=== PATIENT | male | born 1980 | race Caucasian/White ===

== ENCOUNTER 2025-01-15 09:34 | Emergency (ER) | payer OTHER, SELFPAY ==
--- OUTSIDE RECORDS SUMMARY | 2025-01-15 09:37 | XMS_ITS | Clinical Summary ---
Author Organization [facility] [address] Address [address] [place] [phone] Care Team Providers Care Advertising Space Clerk Name Role Phone Cecille Dominguez Primary Care Provider Unavaila ble Allergies No known active allergies Medications No known medications Active Problems No known active problems Encounters Date Type Department Care Team Description 01/14/2025 4:00 PM CDT Office Visit [facility] Convenient Care at [address] [address] Gildardo Hatfield NP Blood in stool (Primary Dx); Diarrhea, unspecified type from Last 3 Months Social History Tobacco Use Types Packs/Day Years Used Date Smoking Tobacco: Never Assessed Sex and Gender Information Value Date Recorded Sex Assigned at Not on file 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 Gender Identity Not on file Sexual Orientation Not on file Obstetrics History Last Filed Vital Signs Vital Sign Reading Time Taken Comments Blood Pressure 128/82 01/14/2025 4:11 PM CDT Pulse 75 01/14/2025 4:11 PM CDT Temperature 36.6 C (97.8 F) 01/14/2025 4:11 PM CDT Respiratory Rate 20 01/14/2025 4:11 PM CDT Oxygen Saturation 99% 01/14/2025 4:11 PM CDT Inhaled Oxygen Concentration - - Weight 62.1 kg (137 lb) 01/14/2025 4:11 PM CDT Height 180.3 cm (5' 11) 02/28/2023 5:42 PM CDT Body Mass Index 19.11 02/28/2023 5:42 PM CDT Plan of Treatment Health Maintenance Due Date Last Done Comments Colon Cancer Screening-Colonoscopy 1978 Depression Screening 1978 Hepatitis C Screening 1978 DTaP/Tdap/Td Vaccine (1 - Tdap) 1989 Hepatitis B Screening 1996 Regular Well Visit/Exam 18-64 1996 Covid-19 Vaccine (4 - 2023-2 5 season) 2024 06/28/2021, 09/16/2020, 08/13/2020 Influenza Vaccine (#1) 2025 , 06/28/2021, 07/18/2012 HPV Vaccines Aged Out No longer eligi ble based on patient's age to complete this topic Pneumococcal vaccine <65 Aged Out No longer eligible based on patient's age to complete this topic Insurance CHOICE PLUS [facility] HMO/PPO Address: [address] [address] [place] [address] Care Teams Advertising Space Clerk Relationship Specialty Start Date End Date Cecille Dominguez PCP - General 08/26/08
--- OUTSIDE RECORDS SUMMARY | 2025-01-15 09:37 | XMS_ITS | Referral Summary ---
Author Organization [facility] Address [address] [place] [phone] Care Team Providers Care Undercutter Operator Name Role Phone Cecille Dominguez Primary Care Provider Maricel ble Encounters Date Type Department Care Team Description 01/14/2025 4:00 PM CDT Office Visit [facility] Convenient Care at [address] [phone] Gildardo Hatfield NP Blood in stool (Primary Dx); Diarrhea, unspecified type from Last 3 Months Allergies No known active allergies Medications No known medications Active Problems No known active problems Social History Tobacco Use Types Packs/Day Years Used Date Smoking Tobacco: Never Assessed Sex and Gender Information Value Date Recorded Sex Assigned at Not on file 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
--- OUTSIDE RECORDS SUMMARY | 2025-01-15 09:37 | XMS_ITS | Encounter Summary ---
Author Organization [facility] Address [address] [place] [address] Care Team Providers Care Political Scientist Name Role Phone Cecille Dominguez Primary Care Provider Unavaila ble Reason for Referral * Consultation (Urgent) - Pending Review Specialty Diagnoses / Procedures Referred By Contac t Referred To Contact Family Medicine Diagnoses Blood in stool Diarrhea, unspecified type Gildardo Hatfield NP [address] [place] [address] Phone: tel: fax: Tanner Oneil MD [address] [place] [address] Phone: tel: fax: Referral ID Status Reason Start Date Expiration Date Visits Requested Visits Authorized [id number] Pending Review Specialty Services Required 01/14/2025 02/13/2026 1 1 Question Answer Please select the performing region: [facility] [[id number]] # of visits: 1 * Consultation (Urgent) - Pending Review Specialty Diagnoses / Procedures Referred By Contac t Referred To Contact Gastroenterology Diagnoses Blood in stool Diarrhea, unspecified type Gildardo Hatfield NP [address] [place] [address] Phone: tel: fax: [facility] Gastroenterology [address] [place] [phone] Phone: tel: fax: Referral ID Status Reason Start Date Expiration Date Visits Requested Visits Authorized [id number] Pending Review Specialty Services Required 01/14/2025 02/13/2026 1 1 Question Answer Process Instructions: THE AMBULATORY REFERRAL TO GASTROENTEROLOGY IS NOT AN ORDER FOR A PROCEDURE (I.E. EGD, COLONOSCOPY.) USE THE DIRECT SCHEDULING CASE REQUEST ORDER (GI50) IF THE PATIENT REQUIRES A PROCEDURE TO BE PERFORMED. Please select the performing region: [facility] [[id number]] Please select the performing department: [facility] [place] [[id number]] # of visits: 1 Reason for Visit * Reason Comments Rectal Bleeding Blood in stool first noticed 2 months ago and it lasted a couple of days then went away. Then would occurred a few times a week in since first noticed. This last weekend c/o frequent diarrhea and blood in stool. Reports blood is red but not bright red. 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 Gender Identity Not on file Sexual Orientation Not on file documented as of this encounter Last Filed Vital Signs Vital Sign Reading Time Taken Comments Blood Pressure 128/82 01/14/2025 4:11 PM CDT Pulse 75 01/14/2025 4:11 PM CDT Temperature 36.6 C (97.8 F) 01/14/2025 4:11 PM CDT Respiratory Rate 20 01/14/2025 4:11 PM CDT Oxygen Saturation 99% 01/14/2025 4:11 PM CDT Inhaled Oxygen Concentration - - Weight 62.1 kg (137 lb) 01/14/2025 4:11 PM CDT Height - - Body Mass Index 19.11 02/28/2023 5:42 PM CDT documented in this encounter Progress Notes * Gildadro Hatfield NP - 01/14/2025 4:00 PM CDT Images from the original note were not included. Subjective/Objective Patient ID: Cr Gomez is a 44 y.o. male. This patient has verbally consented to recording this visit in order to utilize AI technology in generating this note. Chief Complaint Rectal Bleeding (Blood in stool first noticed 2 months ago and it lasted a couple of days then wentaway. Then would occurred a few times a week in since first noticed. This last weekend c/o frequentdiarrhea and blood in stool. Reports blood is red but not bright red. ) History of Present Illness Cr Gomez is a 44 year old male who presents with digestive issues, including blood in stool and diarrhea. For two months, he has experienced blood in stool and then diarrhea started a couple days ago. Initially, blood appeared once or twice a week, primarily when wiping. Recently, bright red blood is present in the stool and on toilet paper, especially in the morning. Diarrhea frequency has increased in the past week, occurring several times a day, including overnight, with blood described as a 'red cloudy' mixture. There is no cramping, nausea, or abdominal pain. 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 His resting heart ratehas increased from 42-43 to 47 over the past week. He lives alone in [place] and does not havea primary care provider. No hemorrhoids or pain with wiping. He is concerned about the presence of blood and the potential need for further evaluation. Review of Systems All other systems reviewed and are negative. Physical Exam VITALS: P- 47, BP- 128/82 ABDOMEN: Bowel sounds active Physical Exam Vitals and nursing note reviewed. Constitutional: General: He is not in acute distress. Appearance: Normal appearance. He is not ill-appearing. Cardiovascular: Rate and Rhythm: Normal rate and regular rhythm. Pulmonary: Effort: Pulmonary effort is normal. Breath sounds: Normal breath sounds. Abdominal: General: Abdomen is flat. Bowel sounds are normal. Palpations: Abdomen is soft. Tenderness: There is no abdominal tenderness. There is no guarding. Skin: General: Skin is warm and dry. Capillary Refill: Capillary refill takes less than 2 seconds. Neurological: Mental Status: He is alert and oriented to person, place, and time. Gait: Gait normal. Vitals: 01/14/25 1611 BP: 128/82 Pulse: 75 Resp: 20 Temp: 36.6 ??C (97.8 ??F) SpO2: 99% Weight: 62.1 kg (137 lb) No results found. No past medical history on file. No current outpatient medications on file. No Known Allergies Social History Tobacco Use Smoking status: Not on file Smokeless tobacco: Not on file Substance and Sexual Activity Drug use: Not on file Sexual activity: Not on file Alcohol Use: Not on file No past surgical history on file. Procedures Assessment/Plan 1. Blood in stool (Primary) - Ambulatory referral to Gastroenterology; Future - Ambulatory referral to Family Practice; Future 2. Diarrhea, unspecified type - Ambulatory referral to Gastroenterology; Future - Ambulatory referral to Family Practice; Future Results Assessment & Plan Rectal Bleeding and Diarrhea Intermittent rectal bleeding and diarrhea for two months, worsening recently. Differential includesinternal hemorrhoids, gastrointestinal bleed, or other pathology. Risks include anemia and potential need for transfusion. - Refer to gastroenterology for evaluation and management. - Advise monitoring symptoms and seeking emergency care for significant bleeding, fatigue, fever orabdominal pain. - Provide urgent referral contact information. - may take short course of Imodium per package directions if needed Disposition Treatment plan including expectations, follow up, and return precautions discussed with patient/parent, verbalizes understanding. Medication dosage, use, and potential adverse reactions discussed with patient/parent. Advised to follow up with PCP if symptoms do not resolve as expected or sooner if condition worsens. Signs/symptoms warranting ER evaluation reviewed. Patient and/or guardian was given an opportunity to ask questions, questions answered. Gildardo Hatfield NP This office note has been partially dictated using [employer] software, and as a result portions of the record may have been created with this software. Occasional wrong-word or '[id number]' substitutions may have occurred due to the inherent limitations of voice recognition software. Read the chartcarefully and recognize, using context, where substitutions have occurred. Cosigned by Darrick Johns MD at 01/14/2025 5:08 PM CDT documented in this encounter Plan of Treatment Scheduled Referrals Name Type Priority Associated Diagnoses Order Schedule Ambulatory referral to Gastroenterology Outpatient Referral Urgent Blood in stool Diarrhea, unspecified type 1 Occurrences starting 01/14/2025 until 01/14/2026 Ambulatory referral to Family Practice Outpatient Referral Urgent Blood in stool Diarrhea, unspecified type 1 Occurrences starting 01/14/2025 until 01/14/2026 documented as of this encounter Visit Diagnoses Diagnosis Blood in stool- Primary Diarrhea, unspecified type documented in this encounter Care Teams Political Scientist Relationship Specialty Start Date End Date Cecille Dominguez PCP - General 08/26/08 documented as of this encounter
[2025-01-15 09:38] VITALS: BP 149/85; PULSE 81; RESP 18; TEMP 36.8; O2SAT 100
--- NOTE | 2025-01-15 09:44 | ED_ITS ---
HPI - GI Bleed General Chief complaint: GI Bleed Stated complaint: stomach problems Time Seen by Provider: 01/15/25 09:44 Source: patient Mode of arrival: ambulatory Limitations: no limitations History of Present Illness HPI Narrative: 44 YEARS OLD WHITE MALE, HEALTHY OTHERWISE, DOES NOT TAKE MEDICINE AT HOME CAME TO THE ED BY PRIVATE CAR COMPLAINING OF BLOODY DIARRHEA OVER THE LAST 7 DAYS ON AVERAGE OF 5-10 EPISODES OF DIARRHEA A DAY. HE DENIES ANY FEVER, CHILLS, NAUSEA, VOMITING OR ABDOMINAL PAIN PATIENT REPORTS HAVING SIMILAR SYMPTOMS INTERMITTENTLY FOR THE LAST 1 AND HALF MONTH GOT WORSE OVER THE LAST 7 DAYS Related Data Allergies Allergy/AdvReac Type Severity Reaction Status Date / Time No Known Allergies Allergy Verified 01/15/25 09:44 Review of Systems 2 Review of Systems: All systems reviewed & are unremarkable except as noted in HPI and below Exam 2 Narrative: GENERAL APPEARANCE: WELL-DEVELOPED, WELL-NOURISHED SKIN: NORMAL COLOR HEAD: NORMOCEPHALIC, NONTRAUMATIC EYES: CLEAR CONJUNCTIVA ENT: OROPHARYNX NORMAL, EARS NORMAL, NOSE NORMAL NECK: SUPPLE, NONTENDER CHEST AND RESPIRATORY: AIRWAY PATENT, NO RESPIRATORY DISTRESS, NO ACCESSORY MUSCLE USE HEART: REGULAR RATE/RHYTHM ABDOMEN: SOFT, NONTENDER, NO ORGANOMEGALY, QUIET BOWEL SOUNDS, RECTAL EXAM, BLOODY MUCUS, GUAIAC POSITIVE VASCULAR: NORMAL PERIPHERAL PULSES, NORMAL CAPILLARY REFILL. MUSCULOSKELETAL: NORMAL RANGE OF MOTION, NONTENDER BACK NEUROLOGIC: ALERT AND ORIENTED ?3, REGISTRATION CLERK IS NORMAL TESTED, NO GROSS MOTOR DEFICIT Course Consultations Consultation #1: FLORA ASHLEY OUTPATIENT FOLLOW-UP Date: 01/15/25 Vital Signs Vital signs: Vital Signs Temperature 36.8 C 01/15/25 09:38 Pulse Rate 81 01/15/25 09:38 Respiratory Rate 18 01/15/25 09:38 Blood Pressure 149/85 H 01/15/25 09:38 Pulse Oximetry 100 01/15/25 09:38 Oxygen Delivery Room Air 01/15/25 09:38 Temperature 36.8 C 01/15/25 11:07 Pulse Rate 77 01/15/25 11:07 Respiratory Rate 16 01/15/25 11:07 Blood Pressure 123/70 01/15/25 11:07 Pulse Oximetry 99 01/15/25 11:07 Oxygen Delivery Room Air 01/15/25 09:38 MDM - GI Bleed MDM Narrative Medical decision making narrative: PATIENT PRESENT TO THE ED WITH PAINLESS BLOODY DIARRHEA VITAL SIGNS SHOWING BLOOD PRESSURE 149/85 PHYSICAL EXAMINATION: UNREMARKABLE EXCEPT BLOODY MUCUS, GUAIAC POSITIVE DIFFERENTIAL DIAGNOSIS INCLUDE INFLAMMATORY COLITIS, INFECTIOUS COLITIS, ELECTROLYTE IMBALANCE, DEHYDRATION, ANEMIA BLOOD WORKUP TODAY INCLUDES CBC, CMP, LIPASE, NO ACUTE ABNORMALITIES STOOL CULTURE, WBC, C DIFF, SHIGELLOSIS BENDING RESULTS DISCHARGED HOME ON [place] DISCUSSED WITH DR. FLORA WOODS THE PT WAS DISCHARGED TO HOME.THE PT,S CONDITION UPON DISCHARGE WAS FAIR,EDUCATION WAS PROVIDED TO THE PT IN REFERENCE TO THE FINAL IMPRESSION,DISCHARGE STUDY RESULTS,TREATMENT,PROGNOSIS AND NEED FOR FOLLOW UP . Lab Data 01/15/25 09:51 01/15/25 09:51 Labs: Lab Results 01/15/25 Range/Units 09:51 WBC 9.5 (4.5-10.0) K/mm3 RBC 4.55 L (4.6-6.20) M/mm3 Hgb 12.7 L (14.0-18.0) g/dL Hct 38.3 L (42.0-52.0) % MCV 84.2 (80-100) fl MCH 27.9 (26-34) pg MCHC 33.2 (32-36) g/dl RDW 12.4 (11.5-14.5) % Plt Count 273 (150-375) k/mm3 MPV 8.8 (7.4-10.4) fl Immature Gran % (Auto) 0.4 (0-0.5) % Neut % (Auto) 81.4 H (45.5-73.1) % Lymph % (Auto) 8.8 L (18.3-44.2) % [place] % (Auto) 8.8 H (2.6-8.5) % Eos % (Auto) 0.1 (0-4.4) % Baso % (Auto) 0.5 (0.2-1.2) % Lymph # (Auto) 0.83 L (0.9-3.2) K/mm3 [place] # (Auto) 0.8 H (0.1-0.6) K/mm3 Eos # (Auto) 0.0 (0-0.3) K/mm3 Baso # (Auto) 0.1 (0.0-0.1) K/mm3 Abs Immat Gran (auto) 0.04 H (0.00-0.031) K/mm3 Absolute Neuts (auto) 7.7 H (1.3-6.7) K/mm3 Absolute Nucleated RBC 0.000 (0.0-0.012) K/mm3 Nucleated RBC % 0.0 (0.0-0.2) % PT 14.6 (11.1-14.7) Seconds INR 1.1 APTT 26.9 (22.3-36.8) Seconds Sodium 134 L (137-145) mmol/L Potassium 4.2 (3.4-5.0) mmol/L Chloride 101 (98-107) mmol/L Carbon Dioxide 23 (22-30) mmol/L Anion Gap 10 (4-12) mmol/L BUN 16 (9-20) mg/dL Creatinine 1.06 (0.7-1.3) mg/dL Estim Creat Clear Calc 66 ml/min Estimated GFR > 60 (59 - ) Glucose 94 (65-110) mg/dL Calcium 8.8 (8.4-10.2) mg/dL Total Bilirubin 0.6 (0.2-1.3) mg/dL AST 41 (17-59) U/L ALT 21 (6-50) U/L Alkaline Phosphatase 42 (38-126) U/L Total Protein 6.8 (6.3-8.2) g/dL Albumin 4.0 (3.5-5.1) g/dL Blood Type O Positive Antibody Screen Negative Discharge Plan Discharge Clinical Impression: Bloody diarrhea Patient Disposition: Home Condition: Stable Instructions: Antibiotic Form, Acute Diarrhea (ED), Diverticulitis Diet (ED) Additional Instructions: RETURN IF SYMPTOMS ARE WORSENING , CALL DR HINES FOR APPOINTMENT, TAKE TYLENOL NEEDED FOR ACHES AND PAIN, CONTINUE HOME MEDICATIONS. Patient Language: Canadian Prescriptions: New levofloxacin 750 mg tablet 750 mg PO DAILY Qty: 5 0RF Follow-up/Referrals: PHYSICIAN NOT ON STAFF,NONSTAFF [Non-Staff] - Brett Terrazas MD [Physician] - 01/21/25
[2025-01-15 10:00] LABS: Hematocrit 38.3 % (42.0-52.0); Hemoglobin 12.7 g/dL (14.0-18.0); Immature Granulocyte Percent A 0.4 % (0-0.5); Lymphocytes Absolute Auto 0.83 K/mm3 (0.9-3.2); Mean Corpuscular HGB Conc 33.2 g/dl (32-36); Mean Corpuscular Hemoglobin 27.9 pg (26-34); Mean Corpuscular Volume 84.2 fl (80-100); Nucleated Red Blood Cells Absolute Auto 0.000 K/mm3 (0.0-0.012); Nucleated Red Blood Cells Perc 0.0 % (0.0-0.2); Platelet Count Result 273 k/mm3 (150-375); Red Blood Count 4.55 M/mm3 (4.6-6.20); White Blood Count 9.5 K/mm3 (4.5-10.0)
[2025-01-15] MEDS: SODIUM CHLORIDE 0.9% IV 1,000 ML 999 ML IV CONT (10:15)
[2025-01-15 10:20] LABS: Alanine Aminotransferase 21 U/L (6-50); Albumin Level 4.0 g/dL (3.5-5.1); Alkaline Phosphatase 42 U/L (38-126); Anion Gap 10 mmol/L (4-12); Aspartate Amino Transferase 41 U/L (17-59); Bilirubin,Total 0.6 mg/dL (0.2-1.3); Blood Urea Nitrogen 16 mg/dL (9-20); Calcium 8.8 mg/dL (8.4-10.2); Carbon Dioxide 23 mmol/L (22-30); Chloride 101 mmol/L (98-107); Estimated CRCL calculation 66 ml/min; Estimated Glomerular Filt Rate > 60; Glucose 94 mg/dL (65-110); INR 1.1; Potassium 4.2 mmol/L (3.4-5.0); Prothrombin Time 14.6 Seconds (11.1-14.7); Sodium 134 mmol/L (137-145); Total Protein 6.8 g/dL (6.3-8.2)
--- OUTSIDE RECORDS SUMMARY | 2025-01-15 10:23 | XMS_ITS | Clinical Summary ---
Author Organization [facility] [address] Address [address] [place] [phone] Care Team Providers Care Sheet Rock Installation Helper Name Role Phone Cecille Dominguez Primary Care Provider Unavaila ble Allergies No known active allergies Medications No known medications Active Problems No known active problems Encounters Date Type Department Care Team Description 01/14/2025 4:00 PM CDT Office Visit [facility] Convenient Care at [address] [phone] Gildardo Hatfield NP Blood in stool (Primary Dx); Diarrhea, unspecified type from Last 3 Months Social History Tobacco Use Types Packs/Day Years Used Date Smoking Tobacco: Never Assessed Sex and Gender Information Value Date Recorded Sex Assigned at Not on file 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
--- OUTSIDE RECORDS SUMMARY | 2025-01-15 10:23 | XMS_ITS | Referral Summary ---
Author Organization [facility] [place] [place] [facility] Address [address] [place] [phone] Care Team Providers Care Sky Diver Name Role Phone Cecille Dominguez Primary Care Provider Maricel ble Encounters Date Type Department Care Team Description 01/14/2025 4:00 PM CDT Office Visit [facility] Convenient Care at [address] [address] Gildardo Hatfield NP Blood in stool (Primary Dx); Diarrhea, unspecified type from Last 3 Months Allergies No known active allergies Medications No known medications Active Problems No known active problems Social History Tobacco Use Types Packs/Day Years Used Date Smoking Tobacco: Never Assessed Sex and Gender Information Value Date Recorded Sex Assigned at Not on file 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
--- OUTSIDE RECORDS SUMMARY | 2025-01-15 10:23 | XMS_ITS | Encounter Summary ---
Author Organization [facility] Address [address] [place] [address] Care Team Providers Care Branch Customer Service Representative Name Role Phone Cecille Dominguez Primary Care Provider Unavaila ble Reason for Referral * Consultation (Urgent) - Pending Review Specialty Diagnoses / Procedures Referred By Contac t Referred To Contact Family Medicine Diagnoses Blood in stool Diarrhea, unspecified type Gildardo Hatfield NP [address] [place] [address] Phone: tel: fax: Tanner Oneil MD [address] [place] [phone] Phone: tel: fax: Referral ID Status Reason Start Date Expiration Date Visits Requested Visits Authorized [id number] Pending Review Specialty Services Required 01/14/2025 02/13/2026 1 1 Question Answer Please select the performing region: [facility] [[id number]] # of visits: 1 * Consultation (Urgent) - Pending Review Specialty Diagnoses / Procedures Referred By Contac t Referred To Contact Gastroenterology Diagnoses Blood in stool Diarrhea, unspecified type Gildardo Hatfield NP [address] [place] [address] Phone: tel: fax: [facility] Gastroenterology [address] [place] [phone] Phone: tel: fax: Referral ID Status Reason Start Date Expiration Date Visits Requested Visits Authorized [id number] Pending Review Specialty Services Required 01/14/2025 02/13/2026 1 1 Question Answer Process Instructions: THE AMBULATORY REFERRAL TO GASTROENTEROLOGY IS NOT AN ORDER FOR A PROCEDURE (I.E. EGD, COLONOSCOPY.) USE THE DIRECT SCHEDULING CASE REQUEST ORDER (GI50) IF THE PATIENT REQUIRES A PROCEDURE TO BE PERFORMED. Please select the performing region: [facility] [[id number]] Please select the performing department: [facility] [place] [facility] [[id number]] # of visits: 1 Reason for Visit [...] Description 01/14/2025 4:00 PM CDT Office Visit [facility] Convenient Care at [address] [phone] Gildardo Hatfield NP [address] [place] [address] Blood in stool (Primary Dx); Diarrhea, unspecified type Social History Tobacco Use Types Packs/Day Years Used Date Smoking Tobacco: Never Assessed Sex and Gender Information Value Date Recorded Sex Assigned at Not on file 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 He lives alone in [place] and does not havea primary care provider. [...] office note has been partially dictated using Glopho software, and as a result portions of the record may have been created with this software. Occasional wrong-word or '[id number]' substitutions may have occurred due to the [...] type documented in this encounter Care Teams Branch Customer Service Representative Relationship Specialty Start Date End Date Cecille Dominguez PCP - General 08/26/08 documented as of this encounter
[2025-01-15 10:25] LABS: Partial Thromboplastin Time 26.9 Seconds (22.3-36.8)
[2025-01-15 11:07] VITALS: BP 123/70; PULSE 77; RESP 16; TEMP 36.8; O2SAT 99
--- NOTE | 2025-01-15 11:09 | PC.NURSE ---
assumed care of pt from JP mandel. pt resting on stretcher, requesting to use the restroom at this time. pt ambulated to restroom with no difficulty
[2025-01-15 13:00] VITALS: BP 113/70; PULSE 63; RESP 18; O2SAT 100
== END 2025-01-15 13:02 | disposition home or self-care (01) ==
PROVIDERS: Emergency Provider Emergency Medicine
DX: R19.7 Diarrhea, unspecified (principal); K92.1 Melena
CPT/HCPCS: 36415; 80053; 85025; 85610; 85730; 86850; 86900; 86901; 96360; 99283; J7030

== ENCOUNTER 2025-01-23 07:13 | Outpatient (CLI) | payer OTHER, SELFPAY ==
--- OUTSIDE RECORDS SUMMARY | 2025-01-23 07:20 | XMS_ITS | Referral Summary ---
Author Organization [address] Address [address] [place] [phone] Care Team Providers Care Clinical Data Manager Name Role Phone Cecille Dominguez Primary Care Provider Unavaila ble Encounters Date Type Department Care Team Description 01/17/2025 Telephone [facility] Gastroenterology at [address] [place] [phone] Isaac Fernández MD 01/14/2025 4:00 PM CDT Office Visit [facility] Convenient Care at [address] [phone] Gildardo Hatfield NP Blood in stool (Primary Dx); Diarrhea, unspecified type from Last 3 Months Allergies No known active allergies Medications No known medications Active Problems No known active problems Social History Tobacco Use Types Packs/Day Years Used Date Smoking Tobacco: Never Assessed Sex and Gender Information Value Date Recorded Sex Assigned at Not on file 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
--- OUTSIDE RECORDS SUMMARY | 2025-01-23 07:20 | XMS_ITS | Clinical Summary ---
Author Organization [address] Address [address] [place] [phone] Care Team Providers Care Directional Drill Operator Name Role Phone Cecille Dominguez Primary Care Provider Unavaila ble Allergies No known active allergies Medications No known medications Active Problems No known active problems Encounters Date Type Department Care Team Description 01/17/2025 Telephone [facility] Gastroenterology at [address] [place] [phone] Isaac Fernández MD 01/14/2025 4:00 PM CDT Office Visit [facility] Care at [address] [phone] Gildardo Hatfield NP Blood in stool (Primary Dx); Diarrhea, unspecified type from Last 3 Months Social History Tobacco Use Types Packs/Day Years Used Date Smoking Tobacco: Never Assessed Sex and Gender Information Value Date Recorded Sex Assigned at Not on file 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 HMO/PPO Address: [facility] [address] [place] [address] Care Teams Directional Drill Operator Relationship Specialty Start Date End Date Cecille Dominguez PCP - General 08/26/08
[2025-01-23 09:12] LABS: Toxigenic C. Diff NEGATIVE (NEGATIVE)
[2025-01-25 05:07] LABS: Calprotectin, Fecal 7250 ug/g (0-120)
[2025-01-25 15:09] LABS: Pancreatic Elastase, Fecal 84 (>200)
== END 2025-01-23 07:14 | disposition home or self-care (01) ==
PROVIDERS: Visit Provider Nurse Practitioner Family
DX: K92.1 Melena (principal); R19.7 Diarrhea, unspecified; D64.9 Anemia, unspecified
CPT/HCPCS: 82653; 83993; 87045; 87046; 87427; 87493

== ENCOUNTER 2025-01-30 00:47 | Day surgery (SDC) | payer OTHER, SELFPAY ==
[2025-01-29 09:09] VITALS: BMI 18.0
--- OUTSIDE RECORDS SUMMARY | 2025-01-30 00:52 | XMS_ITS | Clinical Summary ---
Author Organization [address] Address [address] [place] [phone] Care Team Providers Care Electrolog Operator Name Role Phone Cecille Dominguez Primary Care Provider Unavaila ble Allergies No known active allergies Medications No known medications Active Problems No known active problems Encounters Date Type Department Care Team Description 01/17/2025 Telephone [facility] Gastroenterology at [address] [place] [phone] Isaac Fernández MD 01/14/2025 4:00 PM CDT Office Visit [facility] Care at [address] [phone] Gildardo Hatfield NP Blood in stool (Primary Dx); Diarrhea, unspecified type from Last 3 Months Social History Tobacco Use Types Packs/Day Years Used Date Smoking Tobacco: Never Assessed Sex and Gender Information Value Date Recorded Sex Assigned at Not on file 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
--- OUTSIDE RECORDS SUMMARY | 2025-01-30 00:52 | XMS_ITS | Referral Summary ---
Author Organization [address] Address [address] [place] [phone] Care Team Providers Care Inspector Metal Fabricating Name Role Phone Cecille Dominguez Primary Care Provider Unavaila ble Encounters Date Type Department Care Team Description 01/17/2025 Telephone [facility] Gastroenterology at [address] [place] [phone] Isaac Fernández MD 01/14/2025 4:00 PM CDT Office Visit [facility] Convenient Care at [address] [phone] Gildardo Hatfield NP Blood in stool (Primary Dx); Diarrhea, unspecified type from Last 3 Months Allergies No known active allergies Medications No known medications Active Problems No known active problems Social History Tobacco Use Types Packs/Day Years Used Date Smoking Tobacco: Never Assessed Sex and Gender Information Value Date Recorded Sex Assigned at Not on file 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
[2025-01-30] MEDS: SIMETHICONE ORAL SUSPENSION 20 MG/0.3 ML 30 ML BOTTLE 1.8 ML PO (08:56)
[2025-01-30 08:57] VITALS: BP 112/81; PULSE 87; RESP 18; TEMP 36.6; O2SAT 100
[2025-01-30] MEDS: LACTATED RINGERS 1,000 ML 150 ML IV CONT (09:06)
--- NOTE | 2025-01-30 09:12 | WPDANESEPPF ---
Anes - Initial Pre Proc Eval Procedure: Operation Date: 01/30/25 10:00 Proposed Procedures p EGD & Diagnostic Colonoscopy - Brett Terrazas MD Date/Time: 01/30/25 09:12 Surgeon: Brett Terrazas MD Pre Op Diagnosis: Melena,Diarrhea,Anemia,Abnormal weight loss Patient Data Age: 44 Gender: M Height: 1.8 m Weight: 54.8 kg Last Vital Signs Temp 36.6 C 01/30/25 08:57 Pulse 87 01/30/25 08:57 Resp 18 01/30/25 08:57 BP 112/81 01/30/25 08:57 Pulse Ox 100 01/30/25 08:57 O2 Del Method Room Air 01/30/25 08:57 Allergies Allergy/AdvReac Type Severity Reaction Status Date / Time No Known Allergies Allergy Verified 01/30/25 08:54 Home Medications ?Medication ?Instructions ?Recorded ?Confirmed ?Type No Home Medications 01/29/25 01/29/25 History Patient hx anesthesia problems: post op nausea/vomiting Family hx anesthesia problems: none Results Review: All pre-operative results and documents have been reviewed as part of the pre-operative evaluation. [facility] Social History Social History Smoking status: Former smoker Tobacco type: cigarettes Alcohol intake: never Substance use: current Substance use type: marijuana Other substance usage details: 01/29/2025 Living arrangements: alone Anes - Eval Final PreProcedure Day of Procedure 01/30/25 09:12 Patient weight: cachectic Heart: regular rate and rhythm Lungs: clear to auscultation Airway: Mallampati scale class II Neurological: alert and oriented Last oral intake: >/= 8 hours ASA classification: III Emergent: no Anesthetic plan: proceed Anesthesia type and monitoring: general GIVS and standard monitoring Results Review: All pre-operative results and documents have been reviewed as part of the pre-operative evaluation. Informed Consent: The patient's anesthetic plan and its attendant risks and benefits were discussed with the patient/family/POA. Questions were solicited and answers provided to the satisfaction of the patient/family/POA.
--- NOTE | 2025-01-30 10:04 | PM.IMHP ---
H&P: HPI History of Present Illness Date/Time: 01/30/25 10:04 Chief Complaint: Chronic diarrhea-rectal bleeding Narrative: the patient started approximately 1 month ago with episodes of diarrhea, up to 10-15 per day, associated with intermittent rectal bleeding. He has lost approximately 20 lb in this period. He has diffuse abdominal discomfort but no pain or vomiting. He is referred for EGD and colonoscopy. Review of Systems Review of Systems: All systems reviewed & are unremarkable except as noted in HPI and below PMFSH Social History Social History Smoking status: Former smoker Tobacco type: cigarettes Alcohol intake: never Substance use: current Substance use type: marijuana Other substance usage details: 01/29/2025 Living arrangements: alone Meds Home Medications and Allergies Home Medications ?Medication ?Instructions ?Recorded ?Confirmed ?Type No Home Medications 01/29/25 01/29/25 History Allergies Allergy/AdvReac Type Severity Reaction Status Date / Time No Known Allergies Allergy Verified 01/30/25 08:54 Vital Signs Vital Signs - 24 hr 01/30/25 08:57 Temperature 98 F Pulse Rate 87 Respiratory Rate 18 Blood Pressure 112/81 Pulse Oximetry 100 Oxygen Delivery Room Air Exam Const: General: cooperative and healthy appearing Resp: Effort & Inspection: normal respiratory effort and able to speak in complete sentences Auscultation: clear to auscultation bilaterally Cardio: Rate: regular rate Rhythm: regular rhythm GI: Inspection: normal to inspection GI Palp: No No hepatosplenomegaly present Auscultation: normal bowel sounds Rectal Exam: deferred Skin: General skin exam: normal color Psych: Appearance: grossly normal Mental Status: mental status grossly normal Assessment and Plan Assessment and plan (1) Diarrhea: Qualifiers: Diarrhea type: unspecified type Qualified Code(s): R19.7 - Diarrhea, unspecified Code(s): R19.7 - Diarrhea, unspecified Status: Acute Assessment and Plan: The patient is deemed a good candidate for the procedure. Consent signed. Will proceed.
--- NOTE | 2025-01-30 10:22 | S_PTH ---
PATIENT: Cr Gomez LOC: [facility] #:[id number] AGE/SX: 44/M ROOM: RE01/30/[address]: Brett Terrazas MD : 1980 BED: DIS: 01/30/2025 SPEC #: [id number] RECD: 01/30/25 13:27 STATUS: ALICIA REZach #: [id number] [place]: 01/30/25 10:[address]: Brett Terrazas DEPT: [facility] Surgical RECD BY: Fatoumata Starkey ENTERED: 01/30/25 13:27 SP TYPE: Surgical OTHR DR: BRAILLE OPERATOR PHYSICIAN Tissues: A - Gastric Biopsy B - Gastric Biopsy C - Colon Biopsy D - Colon Biopsy E - Colon Biopsy Procedures: Hematoxylin and Eosin Stain Gross and Microscopic Level 4
--- NOTE | 2025-01-30 10:26 | SUR.OPER ---
EGD: [id number] COLON: Start 1024
[2025-01-30 10:45] VITALS: BP 91/60; PULSE 70; RESP 15; O2SAT 98
[2025-01-30 10:55] VITALS: BP 93/62; PULSE 63; RESP 14; O2SAT 98
[2025-01-30 11:05] VITALS: BP 109/68; PULSE 60; RESP 15; O2SAT 99
== END 2025-01-30 11:30 | disposition home or self-care (01) ==
PROVIDERS: Referring Provider Nurse Practitioner Family; Visit Provider Internal Medicine Gastroenterology
PROC: 0DJ08ZZ Inspection of Upper Intestinal Tract, Via Natural or Artificial Opening Endoscopic (ICD-10-PCS; CPT 45378; principal; 2025-01-30 10:00)
DX: K51.00 Ulcerative (chronic) pancolitis without complications (principal); K29.50 Unspecified chronic gastritis without bleeding; F12.90 Cannabis use, unspecified, uncomplicated; Z87.891 Personal history of nicotine dependence
CPT/HCPCS: 43239; 45380; 88305; J2003; J2704; J7120

== ENCOUNTER 2025-02-15 06:51 | Outpatient (CLI) | payer OTHER, SELFPAY ==
--- OUTSIDE RECORDS SUMMARY | 2025-02-15 06:55 | XMS_ITS | Clinical Summary ---
Author Organization [address] Address [address] [place] [phone] Care Team Providers Care Quarrying Manager Name Role Phone Cecille Dominguez Primary Care Provider Unavaila ble Allergies No known active allergies Medications No known medications Active Problems No known active problems Encounters Date Type Department Care Team Description 01/17/2025 Telephone [facility] Gastroenterology at [address] [place] [phone] Isaac Fernández MD 01/14/2025 4:00 PM CDT Office Visit [facility] at [address] [phone] Gildardo Hatfield NP Blood in stool (Primary Dx); Diarrhea, unspecified type from Last 3 Months Social History Tobacco Use Types Packs/Day Years Used Date Smoking Tobacco: Never Assessed Sex and Gender Information Value Date Recorded Sex Assigned at Not on file 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
[2025-02-15 13:14] LABS: Hepatitis B Core IgM Result Negative (Negative)
[2025-02-16 06:07] LABS: Hep B Core Ab, Total Negative (Negative)
== END 2025-02-15 06:52 | disposition home or self-care (01) ==
LOC: ANHLAB 06:53
PROVIDERS: Visit Provider Nurse Practitioner Family
DX: R19.5 Other fecal abnormalities (principal); R63.4 Abnormal weight loss
CPT/HCPCS: 36415; 86480; 86704; 86705